=== PATIENT | female | born 1985 | race Two or more races ===

== ENCOUNTER 2018-03-01 11:44 | Emergency (ER) | payer OTHER ==
[~2018-03-01] VITALS: Ht 157.5 cm; Wt 52.2 kg
[~2018-03-01 11:44] MED LIST: LEVSIN0.125 MG PO; OMEGA-31000 MG PO; ORPH100T PO; PROTONIX40 MG PO; VISTARIL25 MG PO; ZANTAC300 MG PO; ZOFRAN4 MG PO
== END 2018-03-01 14:58 | disposition home or self-care (01) ==
LOC: ER 11:44
DX: R07.89 Other chest pain (principal); F06.4 Anxiety disorder due to known physiological condition